=== PATIENT | female | born 1960 | race Caucasian/White ===

== ENCOUNTER 2017-01-26 08:08 | Observation (INO) | payer MEDICARE, MEDICAID ==
[2017-01-26] MEDS ORDERED: ASPIRIN 81 MG TAB.CHEW PO ONE (08:22)
[2017-01-26] MEDS ORDERED: METOPROLOL TARTRATE 1 MG/ML AMPUL IV ONE ×3 (08:24→22:49)
[2017-01-26 08:43] LABS: Hematocrit 45.1 % (37.0-47.0); Hemoglobin 15.1 gm/dL (12.5-16.0); Mean Cell Volume 96.2 fl (78-100); Mean Corpuscular Hemoglobin 32.2 pg (27-31); Mean Corpuscular Hgb Conc 33.5 g/dl (32-36); Mean Platelet Volume 10.7 fl (6.0-9.5); Neutrophil # 7.1 K/mm3 (1.3-6.0); Neutrophil % 66.3 % (42-75.0); Platelet Count 214 K/mm3 (150-450); Red Blood Count 4.69 M/mm3 (4.2-5.4); Red Cell Distribution Width 12.6 % (11.5-14.0); White Blood Count 10.7 K/mm3 (4.0-10.5)
[2017-01-26] MEDS ORDERED: ASPIRIN 81 MG TAB.CHEW ONE (08:48)
[2017-01-26 08:53] LABS: Prothrombin Time (Patient) 9.7 Seconds (9.4-11.4)
[2017-01-26 08:54] LABS: INR 0.93 INR (0.90-1.10); Partial Thrombolplastin Time 27.8 Seconds (24-32)
[2017-01-26 08:54] LABS: Urine Bilirubin Negative (NEGATIVE); Urine Ketone Negative (NEGATIVE); Urine Nitrite Negative (NEGATIVE); Urine Protein Negative (NEGATIVE); Urine Urobilinogen Normal (NORMAL)
[2017-01-26 09:02] LABS: Troponin I 0.03 ng/ml (0.00-0.10)
[2017-01-26 09:03] LABS: Albumin * 3.2 gm/dl (3.4-5.0); Anion Gap 9.5 mmol/L (6.8-13.8); BUN/Creatinine Ratio 22.2 (9.0-21.6); Bilirubin, Total 0.3 mg/dL (0.0-1.1); Ca. Corrected For Albumin 9.1 mg/dL (8.4-10.2); Calcium * 8.8 mg/dL (7.9-10.9); Carbon Dioxide 30.5 mmol/L (24-32.6); Total Protein 6.8 gm/dL (6.2-8.2)
[2017-01-26 09:15] LABS: Urine Appearance Clear; Urine Bacteria None Seen; Urine Blood Negative /ul (NEGATIVE); Urine Color Yellow; Urine RBC None Seen /hpf (0-5); Urine WBC 0-5 /hpf (0-5)
[2017-01-26] MEDS ORDERED: DILTIAZEM HCL 5 MG/ML VIAL IV ONE ×3 (09:47→16:15)
--- NOTE | 2017-01-26 10:37 | ERNOTE ---
Medical Problem HPI - General Chief Complaint: General Assessment Time Seen by Provider: 01/26/17 08:30 Source: patient, RN/MD - notified by dr villalobos patient in office Exam Limitations: no limitations - Immun/Allergies/Home Medications Immunizations: IMMUNIZATION HX Immunizations Up to Date Yes History of Influenza Vaccine Yes Hx Pneumococcal Vaccination No Allergies/Adverse Reactions: Allergies adhesive Adverse Reaction (Verified 01/26/17 08:11) Home Medications: HOME MEDICATIONS Albuterol Sulfate [Proair Respiclick] 2 puff IH PRN PRN 02/04/16 [Last Taken Unknown] Cetirizine HCl [Zyrtec] 10 mg PO DAILY 02/04/16 [Last Taken Unknown] Dexlansoprazole [Dexilant] 60 mg PO DAILY 02/04/16 [Last Taken Unknown] Gabapentin 300 mg PO TID 02/04/16 [Last Taken Unknown] Levothyroxine Sodium [Synthroid] 100 mcg PO DAILY 02/04/16 [Last Taken Unknown] Lysine HCl [l-Lysine] 1,000 mg PO BID 02/04/16 [Last Taken Unknown] Metoprolol Tartrate [Lopressor] 25 mg PO BID 02/04/16 [Last Taken Unknown] Multivitamin [One Daily Essential] 1 each PO DAILY 02/04/16 [Last Taken Unknown] Nabumetone 750 mg PO BID 02/04/16 [Last Taken Unknown] Prazosin HCl 4 mg PO HS 02/04/16 [Last Taken Unknown] Sertraline HCl [Zoloft] 100 mg PO DAILY 02/04/16 [Last Taken Unknown] Calcium Carbonate/Vitamin D3 [Calcium 600 + D3 Softgel] 1 each PO BID 01/26/17 [ Last Taken Unknown] - History of Present History Timing: intermittent Severity: moderate Review of Systems - Review of Systems Constitutional: Present: weakness, fatigue EYE: Present: no symptoms reported ENT: Present: no symptoms reported Respiratory: Present: no symptoms reported Cardiology: Present: See HPI, palpitations Gastrointestinal/Abdominal: Present: no symptoms reported Genitourinary: Present: no symptoms reported Musculoskeletal: Present: no symptoms reported Skin: Present: no symptoms reported Neurological: Present: no symptoms reported Endocrine: Present: no symptoms reported Hematologic/Lymphatic: Present: no symptoms reported Psych: Present: no symptoms reported All Other Systems: All systems neg except as marked - Patient's Past Medical History Patient History - Medical: Arthritis, Depression, GERD, Headache, Other Patient History - Cardiac/Respiratory: Asthma, CPAP/BiPAP Home Use Patient History - Cancer: No Hx of Cancer Patient History - Surgical Procedures: Appendectomy, Cholecystectomy, Colonoscopy, EGD, Hysterectomy, Total Hip Replacement, Total Knee Replacement, T & A Patient History - Other: None LMP (females 10-50): Menopausal - Family History Family History:: no untoward family reactions to anesthesia, no family history of clotting disorders - Family History Mother Family History - Medical: , Diabetes Type 2 Family History - Cardiac/Respiratory: CHF Father Family History - Medical: , No pertinent hx Family History - Cardiac/Respiratory: Myocardial Infarction Family History - Cancer: No pertinent family hx - Social History Living Situations: home Abuse History: No History of abuse Psych History: Hx of Depression Smoking Status: Current every day smoker Have you smoked in the past 12 months: Yes Do you dip or chew tobacco: No Alcohol Use: rarely Drug Use: none - Immunizations Immunizations Up to Date: Yes Hx Pneumococcal Vaccination: No History of Influenza Vaccine: Yes Physical Exam - Physical Exam General Appearance: Present: alert, mild distress Head Exam: Present: normal inspection, no evidence of injury Eye Exam: Normal inspection: bilateral, PERRL: bilateral, EOMI: bilateral Ears, Nose, Throat: Present: normal ENT inspection Neck: Present: normal inspection, nontender Respiratory: Present: no respiratory distress, normal breath sounds, no accessory muscle use, chest nontender Cardiovascular/Chest: Present: irregularly irregular Peripheral Pulses: N=norm/S=strong/W=weak/B=bound/A=absent: Carotid (R): Normal , Carotid (L): Normal, Radial (R): Normal, Radial (L): Normal, Femoral (R): Normal, Femoral (L): Normal, Dorsalis-pedis (R): Normal, Dorsalis-pedis (L): Normal Gastrointestinal/Abdominal: Present: normal bowel sounds, nontender, nondistended, soft, no organomegaly Back Exam: Present: normal inspection, normal range of motion, no CVA tenderness , no vertebral tenderness Extremity Exam: Present: normal inspection, non-tender, normal range of motion, no edema Neurological Exam: Present: alert, oriented, normal mood/affect, no motor/ sensory deficits DTR: N=norm/NB=norm/brisk/A=abs/DD=dull/dimin/HC=hyperactive: Bicep (R): Normal , Bicep (L): Normal, Tricep (R): Normal, Tricep (L): Normal, Knee (R): Normal, Knee (L): Normal, Ankle (R): Normal, Ankle (L): Normal Skin Exam: Present: normal color, warm/dry Lymphatic Exam: Present: no adenopathy ED Progress - Results and Orders Patient's Lab Results:: I have reviewed the patient's lab results. - Vital Signs Patient's Vital Signs:: I have reviewed the patient's vital signs. Vital Signs: Vital Signs 01/26/17 01/26/17 01/26/17 08:20 08:39 09:02 Temperature 35.9 C L Pulse Rate 119 H 129 H 112 H Respiratory 20 Rate Blood Pressure 149/51 143/105 O2 Sat by Pulse 95 Oximetry - EKG EKG: atrial fibrillation - Progress/Reassessment Chief Complaint: General Assessment Progress:: Improved - Transfer of Care Expected Disposition: Admit Departure - Departure Clinical Impression: Atrial dysrhythmia Disposition: [facility] Condition: Fair Referrals: Honorio Villalobos MD [Primary Care Provider] -
[2017-01-26] MEDS ORDERED: ALBUTEROL SULFATE 2.5 MG/3 ML VIAL.NEB IH PRN (12:47)
--- NOTE | 2017-01-26 13:03 | HP ---
Chief Complaint - Chief Complaint Date of Service: 01/26/17 Time of Service: 12:49 Chief Complaint: [place], Rapid HR in clinic. History of Present Illness: Pt. with PMH of SIMBA, hypothyroidism, asthma and recent bradycardia, was being seen in clinic for CPAP compliance and bradycardia with her being in an irregular rhythm and HR in the 120-130's. She described some chest discomfort and dizziness, 12 lead EKG showed aflutter with RVR and some ST changes so was sent to ER for evaluation. ER labs didn't show changes in cardiac enzymes and HR did come down with single dose of cardizem, but still was irregular and HR low 100's. She was admitted for Observation to be sure not an ACS, that her HR remains controlled and to start her on Eliquis. In reviewing history with her further she has been taking nabumetome more due to her back and joint pains (pain clinic states no narcotics for pain unless she 's off clonazepam). She also states she has been wheezing and coughing more lately, but Denies F/C/GERD sx. She states she has been compliant on her CPAP and does find it beneficial, though still feels tired a lot. Her last TSH in 10/31 was wnl. - Patient's Past Medical History Patient History - Medical: Arthritis, Depression, GERD, Headache Patient History - Cardiac/Respiratory: Asthma, CPAP/BiPAP Home Use, Sleep Apnea Patient History - Cancer: No Hx of Cancer Patient History - Surgical Procedures: Appendectomy, Cholecystectomy, Colonoscopy, EGD, Hysterectomy, Total Hip Replacement, Total Knee Replacement, T & A Patient History - Other: None LMP (females 10-50): Menopausal - Family History Family History:: no untoward family reactions to anesthesia, no family history of clotting disorders - Family History Mother Family History - Medical: , Diabetes Type 2 Family History - Cardiac/Respiratory: CHF, COPD Family History - Cancer: No pertinent family hx Father Family History - Medical: , No pertinent hx Family History - Cardiac/Respiratory: Myocardial Infarction Family History - Cancer: Melanoma Sister Family History - Medical: Diabetes Type 2, Hypothyroidism Family History - Cardiac/Respiratory: Sleep Apnea Family History - Cancer: No pertinent family hx - Social History Living Situations: spouse Abuse History: No History of abuse Psych History: Hx of Anxiety Smoking Status: Current every day smoker Have you smoked in the past 12 months: Yes Do you dip or chew tobacco: No Patient requests Smoking Cessation Consult: No Initiate information on Smoking Cessation: Yes Alcohol Use: rarely Drug Use: none - Immunizations Immunizations Up to Date: Yes Hx Pneumococcal Vaccination: No History of Influenza Vaccine: Yes Review Of Systems (GEN) - Review of Systems Generalized/Overall Review: Present: Weakness, Fatigue. Absent: Chills, Fever EENTM: Present: No Symptoms Reported Respiratory: Present: Shortness of Breath, Wheezing. Absent: Cough Cardiac: Present: Palpitations, Other - dizziness. Absent: Chest Pain Genitourinary: Present: No Symptoms Reported Musculoskeletal: Present: No Symptoms Reported Neurological: Present: No Symptoms Reported Skin: Present: No Symptoms Reported Endocrine: Present: No Symptoms Reported Immunizations: IMMUNIZATION HX Immunizations Up to Date Yes History of Influenza Vaccine Yes Hx Pneumococcal Vaccination No Allergies/Adverse Reactions: Allergies Allergy/AdvReac Type Severity Reaction Status Date / Time black pepper Allergy Mild Itching Verified 01/26/17 11:30 cinnamon Allergy Mild Itching Verified 01/26/17 11:30 grass pollen Allergy Mild Itching Verified 01/26/17 11:30 adhesive AdvReac Verified 01/26/17 11:30 Pet dander Allergy Mild Itching Uncoded 01/26/17 11:30 Home Medications: HOME MEDICATIONS Albuterol Sulfate [Proair Respiclick] 1 - 2 puff IH Q4H PRN 02/04/16 [Last Taken Unknown] Cetirizine HCl [Zyrtec] 10 mg PO HS 02/04/16 [Last Taken Unknown] Dexlansoprazole [Dexilant] 60 mg PO DAILY 02/04/16 [Last Taken Unknown] Gabapentin 300 mg PO TID 02/04/16 [Last Taken Unknown] Levothyroxine Sodium [Synthroid] 100 mcg PO DAILY 02/04/16 [Last Taken Unknown] Lysine HCl [l-Lysine] 1,000 mg PO BID 02/04/16 [Last Taken Unknown] Metoprolol Tartrate [Lopressor] 25 mg PO BID 02/04/16 [Last Taken Unknown] Multivitamin [One Daily Essential] 1 each PO DAILY 02/04/16 [Last Taken Unknown] Nabumetone 750 mg PO BID 02/04/16 [Last Taken Unknown] Prazosin HCl 4 mg PO HS 02/04/16 [Last Taken Unknown] Sertraline HCl [Zoloft] 100 mg PO DAILY 02/04/16 [Last Taken Unknown] Calcium Carbonate/Vitamin D3 [Calcium 600 + D3 Softgel] 1 each PO BID 01/26/17 [ Last Taken Unknown] Fluticasone Propionate [Flovent Diskus] 100 mcg IH BID 01/26/17 [Last Taken Unknown] clonazePAM [Klonopin] 0.5 mg PO HS 01/26/17 [Last Taken Unknown] Exam - Exam Vital Signs: Vital Signs - Last Taken Temp 36.0 C L 01/26/17 11:00 Pulse 108 H 01/26/17 11:47 Resp 20 01/26/17 11:00 BP 153/90 01/26/17 11:00 Pulse Ox 94 01/26/17 11:00 Constitutional: Present: Alert, Oriented x3, Cooperative, Mild distress, Morbidly obese ENT Exam: Present: hearing grossly normal Eye Exam: bilateral eye: normal inspection, PERRL, EOMI Neck: Present: supple Breasts: Present: Exam deferred Respiratory: Present: no respiratory distress, no accessory muscle use, wheezing , expiration (prolonged) Cardiovascular/Chest: Present: regular rate, rhythm, no murmur Abdomen: Present: Normal bowel sounds, soft, nontender, no rebound tenderness, no hepatospenomegaly, obese /Rectal: Present: Exam deferred Extremity: Present: no calf tenderness Skin Exam: Present: normal color Neurologic: Present: oriented x 3, other - mood dysphoric with flat affect Appearance: Present: appropriate appearance, appropriate insight Eye contact: Present: cooperative, normal speech, avoids eye contact Thoughts: Present: normal thought pattern, no apparent hallucination Diagnostic Studies: Laboratory Results WBC 10.7 K/mm3 (4.0-10.5) H 01/26/17 08:35 RBC 4.69 M/mm3 (4.2-5.4) 01/26/17 08:35 Hgb 15.1 gm/dL (12.5-16.0) 01/26/17 08:35 Hct 45.1 % (37.0-47.0) 01/26/17 08:35 MCV 96.2 fl (78-100) 01/26/17 08:35 MCH 32.2 pg (27-31) H 01/26/17 08:35 MCHC 33.5 g/dl (32-36) 01/26/17 08:35 RDW 12.6 % (11.5-14.0) 01/26/17 08:35 Plt Count 214 K/mm3 (150-450) 01/26/17 08:35 MPV 10.7 fl (6.0-9.5) H 01/26/17 08:35 Immature Gran % (Auto) 0.40 % (0.001-0.429) 01/26/17 08:35 Immature Gran # (Auto) 0.04 K/mm3 (0.000-0.0310) H 01/26/17 08:35 Neutrophils % 66.3 % (42-75.0) 01/26/17 08:35 Lymphocytes % 22.0 % (20-51) 01/26/17 08:35 Monocytes % 8.2 % (0.0-9) 01/26/17 08:35 Eosinophils % 2.3 % (0.0-3.0) 01/26/17 08:35 Basophils % 0.8 % (0.0-1.0) 01/26/17 08:35 Nucleated RBC % 0.0 k/mm3 (0-1) 01/26/17 08:35 Neutrophils # 7.1 K/mm3 (1.3-6.0) H 01/26/17 08:35 Lymphocytes # 2.3 k/mm3 (1.5-3.5) 01/26/17 08:35 Monocytes # 0.9 k/mm3 (0.0-1.0) 01/26/17 08:35 Eosinophils # 0.3 k/mm3 (0.0-0.7) 01/26/17 08:35 Absolute Basophils 0.1 k/mm3 (0.0-0.1) 01/26/17 08:35 PT 9.7 Seconds (9.4-11.4) 01/26/17 08:35 INR (Anticoag Therapy) 0.93 INR (0.90-1.10) 01/26/17 08:35 PTT ([place]) 27.8 Seconds (24-32) 01/26/17 08:35 Sodium 141 mmol/L (132-142) 01/26/17 08:35 Plasma Sodium 141 mmol/L (130-142) 01/26/17 08:35 Potassium 4.0 mmol/L (3.4-4.6) 01/26/17 08:35 Chloride 105 mmol/L (97-106) 01/26/17 08:35 Carbon Dioxide 30.5 mmol/L (24-32.6) 01/26/17 08:35 Anion Gap 9.5 mmol/L (6.8-13.8) 01/26/17 08:35 BUN 18 mg/dL (3-23) 01/26/17 08:35 Creatinine 0.81 mg/dL (0.4-1.4) 01/26/17 08:35 Est GFR (Non-Af Amer) 78 mL/min (60-130) 01/26/17 08:35 BUN/Creatinine Ratio 22.2 (9.0-21.6) H 01/26/17 08:35 Random Glucose 112 mg/dL (70-110) H 01/26/17 08:35 Calcium 8.8 mg/dL (7.9-10.9) 01/26/17 08:35 Calcium Adj for Albumin 9.1 mg/dL (8.4-10.2) 01/26/17 08:35 Total Bilirubin 0.3 mg/dL (0.0-1.1) 01/26/17 08:35 AST 17 U/L (0-48) 01/26/17 08:35 ALT 28 U/L (19-67) 01/26/17 08:35 Alkaline Phosphatase 113 U/L (50-170) 01/26/17 08:35 Troponin I 0.030 ng/ml (0.00-0.10) 01/26/17 08:35 B-Natriuretic Peptide 1918 pg/mL (5-205) H 01/26/17 08:35 Total Protein 6.8 gm/dL (6.2-8.2) 01/26/17 08:35 Albumin 3.2 gm/dl (3.4-5.0) L 01/26/17 08:35 Urine Color Yellow 01/26/17 Unknown Urine Appearance Clear 01/26/17 Unknown Urine pH 6.0 pH (5.0-7.0) 01/26/17 Unknown Ur Specific [place] 1.020 SP.GR. (1.005-1.010) 01/26/17 Unknown Urine Protein Negative mg/dL (NEGATIVE) 01/26/17 Unknown Urine Glucose (UA) Negative mg/dL (NEGATIVE) 01/26/17 Unknown Urine Ketones Negative mg/dL (NEGATIVE) 01/26/17 Unknown Urine Blood Negative /ul (NEGATIVE) 01/26/17 Unknown Urine Nitrate Negative (NEGATIVE) 01/26/17 Unknown Urine Bilirubin Negative mg/dl (NEGATIVE) 01/26/17 Unknown Urine Urobilinogen Normal EU/dl (NORMAL) 01/26/17 Unknown Ur Leukocyte Esterase Negative /ul (NEGATIVE) 01/26/17 Unknown Urine RBC None seen /hpf (0-5) 01/26/17 Unknown Urine WBC 0-5 /hpf (0-5) 01/26/17 Unknown Ur Epithelial Cells 0-5 /hpf (0-5) 01/26/17 Unknown Urine Bacteria None seen (NONE) 01/26/17 Unknown Assessment/Plan - Assessment/Plan (1) Asthma Assessment: could be contributing to A flutter so will do some breathing tx, consider steroids. Problem: Acute Qualifiers: Asthma severity: mild intermittent (2) Atrial flutter by electrocardiogram Assessment: due to ACS or possibly asthma exacerbation or possibly volume overload from NSAIDS (will hold nabumetome) or possbly from SIMBA will follow and address as needed each of these possibilities, treating HR as needed with diltiazem ( starting PO meds now) and starting her on Eliquis. Problem: Acute (3) SIMBA on CPAP Assessment: continue CPAP use Problem: Chronic (4) Discharge planning issues Assessment: If she rules out for ACS will consider d/c tomorrow on diltiazem, metoprolol and eliquis. concern will be she was bradycardic not long ago so make have sick sinus syndrome issue. Will definitely need to see cardiology after discharge. Problem: Acute
[2017-01-26] MEDS: DILTIAZEM HCL 30 MG TABLET PO SCH ×2 (13:20→20:23)
[2017-01-26] MEDS: APIXABAN 2.5 MG TABLET PO SCH ×2 (13:20→20:23)
[2017-01-26] MEDS: GABAPENTIN 300 MG CAPSULE PO SCH ×2 (13:21→17:11)
[2017-01-26] MEDS: ALBUTEROL SULFATE/IPRATROPIUM 3 ML NEBU IH SCH ×4 (14:24→22:23)
[2017-01-26] MEDS ORDERED: BUDESONIDE 0.5 MG/2 ML VIAL.NEB IH SCH (19:00)
[2017-01-26] MEDS ORDERED: LORATADINE 10 MG TABLET PO SCH (21:00)
[2017-01-26] MEDS ORDERED: CALCIUM CARBONATE/VITAMIN D3 1 TAB TABLET PO SCH (21:00)
[2017-01-26] MEDS ORDERED: METOPROLOL TARTRATE 25 MG TABLET PO SCH (21:00)
[2017-01-26] MEDS ORDERED: PRAZOSIN HCL 1 MG CAPSULE PO SCH (21:00)
[2017-01-26] MEDS ORDERED: clonazePAM 0.5 MG TABLET PO SCH (21:00)
[2017-01-27] MEDS ORDERED: AMIODARONE HCL 900 MG in DEXTROSE 5 % IN WATER 500 ML IV SCH ×2 (01:49)
[2017-01-27] MEDS: ALBUTEROL SULFATE/IPRATROPIUM 3 ML NEBU IH SCH (02:17)
[2017-01-27 02:47] VITALS: BP 116/82
--- NOTE | 2017-01-27 03:10 | PN ---
Progess Note - Interim Narrative: At 0101 pt had 7 second pause. went to assess patient / rhythm strip. notified dr belle at 0113 of 7 sec pause and plans to transfer pt to another hospital. called [facility] at 0116, informed to call cardiology for possible admit. called Dr. Lopez at 0119 and updated him on patient and need for pacer. Dr. Lopez declined to admit, saying that he recommended she be transferred to a facility to EP cardiology. [facility] does not have an EP gandy dancer at their facility. 0124 Called [facility] and put on hold. at 0136, was still on the phone with [facility] and spoke with Dr. Martinez, updated him on patient condition and need for pacer. Dr Martinez accepted patient. Dr. Martinez requested that patient be started on amiodarone gtt now with no bolus. O2 on at 2L. House sup at [facility] to call back with room number. notified pt at 0154 of transfer to [facility]. at 0235, still no call from [facility]. 0236 called [facility] again and spoke with house sup. Pt going to [facility] unit room [id number] - ready to transfer. Ambulance called and notified that patient was ready to transfer.
--- NOTE | 2017-01-27 03:15 | DS ---
<Ade Bell - Last Filed: 01/27/17 03:27> Transfer Discharge Summary - Diagnosis(s)/Problems (1) Sick sinus syndrome Problem: Acute (2) Abnormal cardiac conduction Problem: Acute (3) Asthma Problem: Acute (4) Atrial flutter by electrocardiogram Problem: Acute (5) Morbid obesity Problem: Chronic (6) SIMBA on CPAP Problem: Chronic - Course Description of Stay: 57 year old female patient of Dr Villalobos with a PMH of SIMBA, hypothyroidism, asthma and bradycardia was seen in pcp office yesterday and c/o chest discomfort and dizziness. EKG showed aflutter with rvr so patient was sent to ER for eval. ER showed troponin wnl. She was given IV cardizem and iv metoprolol for rate control and was admitted for aflutter with rvr to rule out ACS and rate control. Eliquis was started. Metoprolol tartarte 25 mg bid. Cardziem 30 mg po q 8 hours. At approx 8 pm last night (01/26/17), patient's heart rate started to increase. Around 2230, HR was consistently running 120- 130s. patient was given metoprolol 5 mg iv x 1 at 2310. repeat troponin was negative. at 0101, patient had 7 second pause and was asymptomatic per her own admission. Notified Dr. SHER of plan to transfer patient. Called [facility], spoke with Dr. Lopez (cardiology). He declined to accept patient, recommending that she be transferred to a facility with EP cardiology present. Called [facility] and Dr Martinez accepted the patient. Dr Martinez recommended patient be placed on an amiodarone gtt prior to transport. Amiodarone gtt was ordered and started by nursing staff. Once a room number was received, phone call placed to [facility] ambulance for transport. Orders given to keep pt on O2 at 2L nc throughout the ride down to [facility]. Patient was discharge via EMS to [facility] in Serious condition. Procedures Performed: none - Results and Findings Results and Findings: Laboratory Results - last 24 hr 01/26/17 01/26/17 01/26/17 14:35 23:10 Unknown Troponin I Less than 0.017 Less than 0.017 Urine Color Yellow Urine Appearance Clear Urine pH 6.0 Ur Specific [place] 1.020 Urine Protein Negative Urine Glucose (UA) Negative Urine Ketones Negative Urine Blood Negative Urine Nitrate Negative Urine Bilirubin Negative Urine Urobilinogen Normal Ur Leukocyte Esterase Negative Urine RBC None seen Urine WBC 0-5 Ur Epithelial Cells 0-5 Urine Bacteria None seen - Medications Medications: Active Medications Albuterol/Ipratropium (Duoneb 2.5-0.5mg/3ml Soln) 3 ml IH Q4HRT [facility] Stop: 02/25/17 12:46 Last Admin: 01/27/17 02:17 Dose: Not Given Apixaban (Eliquis) 5 mg PO BID [facility] Stop: 02/25/17 12:46 Last Admin: 01/26/17 20:23 Dose: 5 mg Budesonide (Pulmicort Respules) 0.5 mg IH BIDRT [facility] Stop: 02/25/17 19:01 Last Admin: 01/26/17 19:06 Dose: 0.5 mg Calcium/Vitamin D (Calcarb 600 With Vitamin D) 1 tab PO BID [facility] Stop: 02/25/17 21:01 Last Admin: 01/26/17 20:23 Dose: 1 tab Clonazepam (Klonopin) 0.5 mg PO HS [facility] Stop: 02/25/17 21:01 Last Admin: 01/26/17 20:23 Dose: 0.5 mg Diltiazem HCl (Cardizem) 30 mg PO Q8H [facility] Stop: 02/25/17 12:46 Last Admin: 01/26/17 20:23 Dose: 30 mg Gabapentin (Neurontin) 300 mg PO TID [facility] Stop: 02/25/17 13:01 Last Admin: 01/26/17 17:11 Dose: 300 mg Amiodarone HCl 900 mg/ (Dextrose/Water) 518 mls @ 0 mls/hr IV Q24H [facility]; Titrate PRN Reason: Protocol Stop: 01/28/17 01:49 Last Admin: 01/27/17 02:23 Dose: 1 mg/min, 34.53 mls/hr Loratadine (Claritin) 10 mg PO HS [facility] Stop: 02/25/17 21:01 Last Admin: 01/26/17 20:23 Dose: 10 mg Metoprolol Tartrate (Lopressor) 25 mg PO BID [facility] Stop: 02/25/17 21:01 Last Admin: 01/26/17 20:23 Dose: 25 mg (Lysine Hcl [L- (Lysine] 1,000 Mg)) 1,000 mg PO BID [facility] Stop: 02/25/17 21:01 Last Admin: 01/26/17 20:20 Dose: Not Given Prazosin HCl (Minipress) 4 mg PO HS [facility] Stop: 02/25/17 21:01 Last Admin: 01/26/17 20:23 Dose: 4 mg Discontinued Medications Aspirin (Aspirin Chewable) 324 mg PO ONCE ONE Stop: 01/26/17 08:23 Last Admin: 01/26/17 08:49 Dose: 324 mg Diltiazem HCl (Cardizem) 10 mg IV ONCE ONE Stop: 01/26/17 09:48 Last Admin: 01/26/17 09:49 Dose: 10 mg Diltiazem HCl (Cardizem) 20 mg IV ONCE ONE Stop: 01/26/17 16:16 Last Admin: 01/26/17 17:11 Dose: 20 mg Metoprolol Tartrate (Lopressor) 5 mg IV ONCE ONE Stop: 01/26/17 08:25 Last Admin: 01/26/17 09:02 Dose: 5 mg Metoprolol Tartrate (Lopressor) 5 mg IV ONCE ONE Stop: 01/26/17 22:50 Last Admin: 01/26/17 23:10 Dose: 5 mg - Disposition Disposition: Transferred to other hospital Condition: Serious Discharge Date: 01/27/17 Discharge Time: 03:10 <Robin Rubio - Last Filed: 01/27/17 16:59> Transfer Discharge Summary - Course Description of Stay: Atrial fibrillation, but who developed suddenly a 7 second pause. I agree with the assessment, and plan to transfer. I supervised all of our nurse practitioner hospitalist care for this patient. - Results and Findings Results and Findings: Laboratory Results - last 24 hr 01/26/17 23:10 Troponin I Less than 0.017 - Medications Medications: Active Medications Discontinued Medications Albuterol/Ipratropium (Duoneb 2.5-0.5mg/3ml Soln) 3 ml IH Q4HRT [facility] Stop: 02/25/17 12:46 Last Admin: 01/27/17 02:17 Dose: Not Given Apixaban (Eliquis) 5 mg PO BID [facility] Stop: 02/25/17 12:46 Last Admin: 01/26/17 20:23 Dose: 5 mg Aspirin (Aspirin Chewable) 324 mg PO ONCE ONE Stop: 01/26/17 08:23 Last Admin: 01/26/17 08:49 Dose: 324 mg Budesonide (Pulmicort Respules) 0.5 mg IH BIDRT [facility] Stop: 02/25/17 19:01 Last Admin: 01/26/17 19:06 Dose: 0.5 mg Calcium/Vitamin D (Calcarb 600 With Vitamin D) 1 tab PO BID [facility] Stop: 02/25/17 21:01 Last Admin: 01/26/17 20:23 Dose: 1 tab Clonazepam (Klonopin) 0.5 mg PO HS [facility] Stop: 02/25/17 21:01 Last Admin: 01/26/17 20:23 Dose: 0.5 mg Diltiazem HCl (Cardizem) 10 mg IV ONCE ONE Stop: 01/26/17 09:48 Last Admin: 01/26/17 09:49 Dose: 10 mg Diltiazem HCl (Cardizem) 30 mg PO Q8H [facility] Stop: 02/25/17 12:46 Last Admin: 01/26/17 20:23 Dose: 30 mg Diltiazem HCl (Cardizem) 20 mg IV ONCE ONE Stop: 01/26/17 16:16 Last Admin: 01/26/17 17:11 Dose: 20 mg Gabapentin (Neurontin) 300 mg PO TID [facility] Stop: 02/25/17 13:01 Last Admin: 01/26/17 17:11 Dose: 300 mg Amiodarone HCl 900 mg/ (Dextrose/Water) 518 mls @ 0 mls/hr IV Q24H [facility]; Titrate PRN Reason: Protocol Stop: 01/28/17 01:49 Last Admin: 01/27/17 02:23 Dose: 1 mg/min, 34.53 mls/hr Loratadine (Claritin) 10 mg PO HS [facility] Stop: 02/25/17 21:01 Last Admin: 01/26/17 20:23 Dose: 10 mg Metoprolol Tartrate (Lopressor) 5 mg IV ONCE ONE Stop: 01/26/17 08:25 Last Admin: 01/26/17 09:02 Dose: 5 mg Metoprolol Tartrate (Lopressor) 25 mg PO BID [facility] Stop: 02/25/17 21:01 Last Admin: 01/26/17 20:23 Dose: 25 mg Metoprolol Tartrate (Lopressor) 5 mg IV ONCE ONE Stop: 01/26/17 22:50 Last Admin: 01/26/17 23:10 Dose: 5 mg (Lysine Hcl [L- (Lysine] 1,000 Mg)) 1,000 mg PO BID [facility] Stop: 02/25/17 21:01 Last Admin: 01/26/17 20:20 Dose: Not Given Prazosin HCl (Minipress) 4 mg PO HS [facility] Stop: 02/25/17 21:01 Last Admin: 01/26/17 20:23 Dose: 4 mg
[2017-01-27] MEDS ORDERED: PATIENT'S OWN MEDICATION 1 DOSE DOSE PO SCH (07:00)
[2017-01-27] MEDS ORDERED: PANTOPRAZOLE SODIUM 40 MG TABLET.EC PO SCH (07:00)
[2017-01-27] MEDS ORDERED: LEVOTHYROXINE SODIUM 100 MCG TABLET PO SCH (07:00)
[2017-01-27] MEDS ORDERED: SERTRALINE HCL 100 MG TABLET PO SCH (09:00)
[2017-01-27] MEDS ORDERED: MULTIVITAMINS 1 CAP CAPSULE PO SCH (09:00)
== END 2017-01-27 03:10 | disposition short-term general hospital (02) ==
LOC: ER 08:08 → MS 10:33
PROVIDERS: ADMIT Family Medicine; ATTEND Family Medicine
DX: I49.5 Sick sinus syndrome (principal); I48.92 Unspecified atrial flutter; J45.20 Mild intermittent asthma, uncomplicated; Z72.0 Tobacco use; E66.01 Morbid (severe) obesity due to excess calories; Z68.41 Body mass index [BMI] 40.0-44.9, adult
CPT/HCPCS: 36415; 71020; 80053; 81001; 83880; 84484; 85025; 85610; 85730; 93005; 94640; 94660; 96374; 96375; 96376; 99284; G0378

== ENCOUNTER 2017-05-22 13:53 | Emergency (ER) | payer MEDICARE, MEDICAID ==
[2017-05-22 14:15] LABS: Hematocrit 46.9 % (37.0-47.0); Hemoglobin 15.6 gm/dL (12.5-16.0); Mean Cell Volume 97.3 fl (78-100); Mean Corpuscular Hemoglobin 32.4 pg (27-31); Mean Corpuscular Hgb Conc 33.3 g/dl (32-36); Mean Platelet Volume 10.7 fl (6.0-9.5); Neutrophil # 6.6 K/mm3 (1.3-6.0); Neutrophil % 67.8 % (42-75.0); Platelet Count 226 K/mm3 (150-450); Red Blood Count 4.82 M/mm3 (4.2-5.4); Red Cell Distribution Width 13.1 % (11.5-14.0); White Blood Count 9.8 K/mm3 (4.0-10.5)
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
[2017-05-22 14:31] LABS: ALT 31 U/L (19-67); AST 14 U/L (0-48); Albumin * 3.4 gm/dl (3.4-5.0); Alkaline Phosphatase * 107 U/L (50-170); BUN/Creatinine Ratio 13.5 (9.0-21.6); Bilirubin, Total 0.3 mg/dL (0.0-1.1); Blood Urea Nitrogen 12 mg/dL (3-23); Ca. Corrected For Albumin 9.2 mg/dL (8.4-10.2); Carbon Dioxide 29.5 mmol/L (24-32.6); Chloride 104 mmol/L (97-106); Glucose * 153 mg/dL (70-110); Potassium 4.5 mmol/L (3.4-4.6); Sodium 140 mmol/L (132-142); Total Protein 7.2 gm/dL (6.2-8.2)
[2017-05-22 15:18] LABS: Urine Bilirubin Negative (NEGATIVE); Urine Blood 25 /ul (NEGATIVE); Urine Ketone Negative (NEGATIVE); Urine Nitrite Negative (NEGATIVE); Urine Protein Negative (NEGATIVE); Urine Specific Gravity <=1.005 SP.GR. (1.005-1.010); Urine Urobilinogen Normal (NORMAL)
[2017-05-22] MEDS ORDERED: MORPHINE SULFATE 4 MG/ML SYRG IV ONE (15:23)
[2017-05-22] MEDS ORDERED: ONDANSETRON HCL/PF 2 MG/ML VIAL IV ONE (15:23)
[2017-05-22] MEDS ORDERED: MORPHINE SULFATE 4 MG/ML SYRG ONE (15:25)
[2017-05-22] MEDS ORDERED: ONDANSETRON HCL/PF 2 MG/ML VIAL ONE (15:26)
[2017-05-22 15:30] LABS: Cocaine Ur Negative (NEGATIVE); Urine Appearance Slightly Cloudy; Urine Barbiturate Negative (NEGATIVE); Urine Benzodiazepines Negative (NEGATIVE); Urine Color Yellow; Urine Opiates Negative (NEGATIVE); Urine PCP Negative (NEGATIVE); Urine THC Negative (NEGATIVE)
[2017-05-22 15:31] LABS: Urine Bacteria TRACE; Urine RBC TRACE /hpf (0-5); Urine WBC None Seen /hpf (0-5)
[2017-05-22 15:59] VITALS: BP 161/56
== END 2017-05-22 15:57 | disposition home or self-care (01) ==
LOC: ER 13:53
DX: S06.0X9A Concussion with loss of consciousness of unspecified duration, initial encounter (principal); S00.03XA Contusion of scalp, initial encounter; S30.1XXA Contusion of abdominal wall, initial encounter; W19.XXXA Unspecified fall, initial encounter; Y92.002 Bathroom of unspecified non-institutional (private) residence as the place of occurrence of the external cause; F17.200 Nicotine dependence, unspecified, uncomplicated; I48.91 Unspecified atrial fibrillation; Z79.01 Long term (current) use of anticoagulants; J45.909 Unspecified asthma, uncomplicated; F32.9 Major depressive disorder, single episode, unspecified; F41.9 Anxiety disorder, unspecified
CPT/HCPCS: 36415; 70450; 72125; 74177; 80053; 80307; 81001; 85025; 86850; 86900; 93005; 96374; 99283; G0481; J2405